=== PATIENT | female | born 1960 | race American Indian/Alaskan Native ===

== ENCOUNTER 2017-03-25 18:27 | Emergency (ER) | payer OTHER, MEDICARE ==
[2017-03-25] MEDS ORDERED: NORCO 5/325 PO ONE (23:38)
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
[2017-03-26 00:13] VITALS: BP 150/83
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
== END 2017-03-26 02:30 | disposition home or self-care (01) ==
LOC: ED 18:27
DX: M54.2 Cervicalgia (principal); V49.9XXA Car occupant (driver) (passenger) injured in unspecified traffic accident, initial encounter; Y93.89 Activity, other specified; Y99.9 Unspecified external cause status; Y92.410 Unspecified street and highway as the place of occurrence of the external cause
CPT/HCPCS: 70450; 72125; 72131